=== PATIENT | female | born 1950 | race Caucasian/White ===

== ENCOUNTER → 2017-02-21 | Outpatient (CLI) | payer OTHER ==
[~2017-02-21] MED LIST: ALPRAZOLAM PO; AMBIEN PO; AVALIDE 300-12.1 TAB PO; AVAPRO PO; BACTRIM; CALCIUM 500 + D1 TAB PO; CALCIUM 600 +1 EAC1 PO; CRESTOR PO; EVISTA60 MG PO; FENOFIBRIC ACI135 MG PO; FISH OIL 1,001000 MG PO; JANUMET 50-1,1 UDTAB PO; LORTAB 7.5-5001 TAB PO; MEGA RED PO; METFORMIN PO; REGLAN10 MG PO; SINGULAIR PO; SYNTHROID PO; TEKTURNA 300 MG; TEKTURNA HCT 151 TAB PO; TRIGLIDE; TRILIPIX45 MG PO; TYLOX1 CAP 5/50 DOB; VYTORIN 10/40 T1 TAB PO
--- NOTE | ~2017-02-21 | CR97 ---
[facility] A Service of [facility] & [facility] RADIOLOGY TEXT RESULTS PATIENT: MORENO GARCIA LOCATION: [facility] : 54 UNIT #: [id number] AGE: [address]: Nate Baker MD SEX: F ORDER DR: [id number] [facility] [address] [facility] [address]. [place], [place] [address] [id number] O MR#: [id number] Acc #: [id number] NAME: MORENO GARCIA : 1950 SEX: F STUDY DATE/TIME: 02/21/2017 8:54 UNIT: [facility] ROOM: STUDY DESCRIPTION: CR Esophagram Attending Physician: Nate Baker M.D. Referring Physician: Nate Baker M.D. Ordering Physician: Nate Baker M.D. Primary Care Physician: Generic Doctor Not In System MEDICAL IMAGING REPORT This report is preliminary unless electronic signature is present EXAM Esophagram with fluoroscopy DATE 02/21/2017 HISTORY Physician's order states dysphagia. Patient states dysphagia. Patient also states felt a pulling pain in the abdomen after trying to get up from the floor, pain sensation on the left side. Laparoscopic gastric band procedure in 2006. Patient states had gastric port revision in February of 2017, but no surgical intervention on the band itself. Patient states dysphagia symptoms present for 1 year. COMPARISON Esophagram 08/18/2007. FINDINGS Multiple spot fluoroscopic images were obtained of the esophagus during ingestion of thin barium consistencies, in various projections. The initial lining repairer fluoroscopic image demonstrates satisfactory orientation of the band device at or just slightly below the expected location of the esophagogastric junction, with phi angle of approximately 39 degrees. The connector tubing appears intact. The access port is located in the right lower quadrant of the abdomen, and appears very slightly tilted in a horizontal orientation. The patient ingested thin barium without difficulty, and no gross penetration or aspiration was witnessed at any time. There is good distensibility throughout the cervical and thoracic esophagus without demonstrable stricture, mass lesion, or diverticular outpouching. There is only a trickle of flow of contrast through the patient's bands, with STS. [facility] A Service of [facility] & [facility] RADIOLOGY TEXT RESULTS PATIENT: MORENO GARCIA LOCATION: [facility] : 54 UNIT #: [id number] AGE: [address]: Nate Baker MD SEX: F ORDER DR: significant resulting upstream distension of the thoracic esophagus with tertiary peristaltic waves. 43 spot fluoroscopic images were obtained with 2.0 minutes total fluoroscopy time. IMPRESSION 1. The band portion of the patient's device appears satisfactorily oriented. The insufflation port is located in the right lower quadrant of the abdomen and may be slightly tilted in a horizontal orientation. 2. There is only trace flow of contrast through the patient's gastric band, resulting in upstream distension of the thoracic esophagus and some secondary and tertiary peristaltic contractions. However, no gross mass lesion, or stricture, or diverticular outpouching is seen within the thoracic esophagus. The cervical esophagus appears unremarkable. Dictated by... Sidra Skinner M.D. THIS IS AN ELECTRONICALLY VERIFIED REPORT Sidra Skinner M.D. at 02/22/2017 7:08 AM HOMAR/juan TD: 02/21/2017 13:39 JOB #: [id number] MEDICAL IMAGING REPORT Page 1 of 1 COPY
== END | disposition home or self-care (01) ==
LOC: CRAD 07:07
DX: R13.10 Dysphagia, unspecified (principal)
CPT/HCPCS: 74220